=== PATIENT | female | born 1990 | race Caucasian/White ===

== ENCOUNTER 2021-04-16 04:24 | Emergency (ER) | payer MEDICAID, OTHER ==
[~2021-04-16] VITALS: Ht 170.2 cm; Wt 59.0 kg
[2021-04-16 04:55] VITALS: BP 123/62
[2021-04-16] MEDS ORDERED: methylPREDNISolone SOD SUCC 125 MG/2 ML VL IM ONE (05:30)
[2021-04-16] MEDS ORDERED: KETOROLAC TROMETH 60MG/2ML VIAL IM ONE (05:30)
== END 2021-04-16 06:05 | disposition home or self-care (01) ==
LOC: ER 04:24
DX: K03.81 Cracked tooth (principal); Z88.5 Allergy status to narcotic agent
CPT/HCPCS: 96372; 99284; J1885; J2930